=== PATIENT | female | born 2000 | race Caucasian/White ===

== ENCOUNTER 2022-04-22 22:50 | Emergency (ER) | payer OTHER, SELFPAY ==
--- NOTE | ~2022-04-22 | XR_ITS ---
EXAMINATION: XR chest 1V portable 04/23/2022 00:27 INDICATION: Cough and shortness of breath PROCEDURE: 2 view chest COMPARISON: No prior studies for comparison. FINDINGS: The lungs are clear. The cardiomediastinal silhouette is within normal limits. There are no pleural effusions. There is no pneumothorax suspected. IMPRESSION: 1: NO ACUTE CARDIOPULMONARY DISEASE. Reviewed, dictated and finalized at location A. [employer] OPERATOR
[2022-04-22 22:52] VITALS: BP 140/85; PULSE 79; RESP 20; TEMP 36.3; O2SAT 100
--- NOTE | 2022-04-22 23:07 | ED.GENADULT ---
HPI - General Adult General Chief complaint: Upper Respiratory Infection Stated complaint: dehydrated sick for 3 days, URI Time Seen by Provider: 04/22/22 23:00 Source: RN notes reviewed History of Present Illness HPI narrative: Patient presents emergency department from home for nausea vomiting. Patient states that she has been ill for the past 2 days states that she has been having rhinorrhea sore throat a cough this been nonproductive nausea and vomiting. She states she has been unable to keep anything down today. She states she has not had any measured fevers gone to [facility] 2 days ago and had a negative COVID test at that time. She denies any chest pain shortness of breath or abdominal pain states she did take Tylenol earlier today for the symptoms Related Data Allergies Allergy/AdvReac Type Severity Reaction Status Date / Time No Known Allergies Allergy Verified 04/22/22 23:36 Review of Systems Review of Systems: Gen.: Denies fevers or chills ENT: Reports rhinorrhea and sore throat Respiratory: Denies shortness of breath reports cough CV: Denies chest pain or palpitations GI: See HPI Musculoskeletal: Denies back pain or muscle pain Neuro: Denies numbness, tingling, weakness or focal weakness Skin: Denies rash Except as documented, all other systems reviewed and negative [facility] Past Medical History Medical History (Updated 04/23/22 @ 01:41 by Dipak Andrade DO) Patient denies significant medical history Social History Social History (Updated 04/22/22 @ 23:08 by Dipak Andrade DO) Smoking status: Never smoker Exam Narrative: APPEARANCE: No acute distress, nontoxic, resting in bed EYES: EOMI HEENT: Normocephalic, atraumatic, oral mucosa dry no erythema exudate posterior pharynx RESPIRATORY: No respiratory distress Clear to auscultation bilaterally with no rhonchi wheezing or rales. CARDIOVASCULAR: Regular rate and rhythm without murmurs rubs or gallops. ABDOMINAL: Soft, nontender, nondistended, no rebound or guarding MUSCULOSKELETAl: Moves all extremities. No clubbing, cyanosis or edema. NEURO: Awake and alert. Following commands, speech normal, no focal deficits SKIN:: Warm, dry. No rashes lesions or abrasions PSYCHIATRIC: Normal affect/mood, Course Course Emergency Course: Patient states she is feeling much better at this time ready for discharge Discussed with patient results of workup and diagnosis. Discussed need for follow-up with primary care, proper use of medication, and reasons to return to the emergency department. Patient understands and agrees to current treatment plan Vital Signs Vital signs: Vital Signs Temperature 97.4 F L 04/22/22 22:52 Pulse Rate 79 04/22/22 22:52 Respiratory Rate 20 04/22/22 22:52 Blood Pressure 140/85 04/22/22 22:52 Pulse Oximetry 100 04/22/22 22:52 Oxygen Delivery Room Air 04/22/22 22:52 Temperature 97.4 F L 04/22/22 22:52 Pulse Rate 79 04/22/22 22:52 Respiratory Rate 20 04/22/22 22:52 Blood Pressure 140/85 04/22/22 22:52 Pulse Oximetry 100 04/22/22 22:52 Oxygen Delivery Room Air 04/22/22 22:52 Medical Decision Making Vital Signs Vital Signs: Vital Signs Temperature 97.4 F L 04/22/22 22:52 Pulse Rate 79 04/22/22 22:52 Respiratory Rate 20 04/22/22 22:52 Blood Pressure 140/85 04/22/22 22:52 Pulse Oximetry 100 04/22/22 22:52 Oxygen Delivery Room Air 04/22/22 22:52 Temperature 97.4 F L 04/22/22 22:52 Pulse Rate 79 04/22/22 22:52 Respiratory Rate 20 04/22/22 22:52 Blood Pressure 140/85 04/22/22 22:52 Pulse Oximetry 100 04/22/22 22:52 Oxygen Delivery Room Air 04/22/22 22:52 Lab Data 04/22/22 23:35 04/22/22 23:35 Labs: Lab Results 04/22/22 04/22/22 04/22/22 Range/Units 23:34 23:35 23:35 WBC 11.0 H (4.5-10.0) K/mm3 RBC 4.39 (4.2-5.4) M/mm3 Hgb 13.4 (12.0-15.0) g/dL Hct 38.9 (37.0-47.0) % MCV 88
[2022-04-22] MEDS: ONDANSETRON INJ 4 MG/2 ML VIAL IV PUSH (23:37)
[2022-04-22] MEDS: SODIUM CHLORIDE 0.9% IV 1,000 ML 999 ML IV CONT (23:37)
[2022-04-22] MEDS: FAMOTIDINE 20 MG/2 ML VIAL IV PUSH (23:37)
[2022-04-22 23:51] LABS: Basophils Percent Auto 0.4 % (0.2-1.2); Eosinophils Percent Auto 0.3 % (0-4.4); Hematocrit 38.9 % (37.0-47.0); Hemoglobin 13.4 g/dL (12.0-15.0); Immature Granulocyte Absolute 0.06 K/mm3 (0.00-0.031); Immature Granulocyte Percent A 0.5 % (0-0.5); Lymphocytes Absolute Auto 0.74 K/mm3 (0.9-3.2); Lymphocytes Percent Auto 6.7 % (18.3-44.2); Mean Corpuscular HGB Conc 34.4 g/dl (32-36); Mean Corpuscular Hemoglobin 30.5 pg (26-34); Mean Corpuscular Volume 88.6 fl (80-100); Mean Platelet Volume 9.4 fl (7.4-10.4); Monocytes Percent Auto 9.1 % (2.6-8.5); Neutrophils Absolute Auto 9.1 K/mm3 (1.3-6.7); Platelet Count Result 277 k/mm3 (150-375); Red Blood Count 4.39 M/mm3 (4.2-5.4); Red Cell Distribution Width 12.7 % (11.5-14.5)
[2022-04-23 00:02] LABS: Alanine Aminotransferase 19 U/L (6-35); Albumin Level 4.7 g/dL (3.5-5.1); Alkaline Phosphatase 69 U/L (38-126); Anion Gap 14 mmol/L (8-16); Aspartate Amino Transferase 27 U/L (14-36); Bilirubin,Total 0.7 mg/dL (0.2-1.3); Blood Urea Nitrogen 15 mg/dL (7-17); Carbon Dioxide 20 mmol/L (22-30); Chloride 105 mmol/L (98-107); Estimated CRCL calculation 102 ml/min; Estimated Glomerular Filt Rate > 60; Glucose 107 mg/dL (65-110); Lipase 31 U/L (23-300); Potassium 3.5 mmol/L (3.4-5.0); Sodium 139 mmol/L (137-145)
[2022-04-23 00:32] LABS: Influenza A QL RT-PCR Positive (Negative); Influenza B QL RT-PCR Negative (Negative); SARS-CoV-2 RNA PCR Negative
[2022-04-23 00:40] LABS: Appearance Urine Clear (Clear); Bilirubin Urine 2+ (Negative); Blood Urine 2+ (Negative); Color Urine Yellow (Yellow); Glucose Urine UA Negative (Negative); Ketones Urine 4+ mg/dL (Negative); Leukocyte Esterase Ur Negative LEU/UL (Negative); Nitrate Urine Negative (Negative); Protein Urine 2+ mg/dL (Negative); Specific Grav Ur 1.025 (1.001-1.035)
[2022-04-23 00:43] LABS: Bacteria Urine Trace /hpf; Mucus Urine Heavy /lpf; RBC Urine 21-50 /hpf (0-2); Squamous Epithelial Cell Urine Occasional /hpf (Few); WBC Urine 0-3 /hpf
[2022-04-23 00:45] LABS: Add Urine Microscopic? YES
[2022-04-23] MEDS: SODIUM CHLORIDE 0.9% IV 1,000 ML 999 ML IV CONT (00:55)
[2022-04-23 02:27] VITALS: PULSE 80; RESP 18; O2SAT 98
== END 2022-04-23 02:29 | disposition home or self-care (01) ==
PROVIDERS: Emergency Provider Emergency Medicine
DX: J10.1 Influenza due to other identified influenza virus with other respiratory manifestations (principal); E86.0 Dehydration; Z20.822 Contact with and (suspected) exposure to COVID-19
CPT/HCPCS: 36415; 71045; 80053; 81001; 83690; 85025; 87636; 96361; 96374; 96375; 99284; J2405; J7030

== ENCOUNTER 2023-04-06 22:57 | Emergency (ER) | payer OTHER, SELFPAY ==
[2023-04-06 23:14] VITALS: BP 130/81; PULSE 78; RESP 15; TEMP 36.4; O2SAT 98
[2023-04-06 23:20] LABS: Basophils Absolute Auto 0.1 K/mm3 (0.0-0.1); Basophils Percent Auto 0.4 % (0.2-1.2); Eosinophils Percent Auto 0.2 % (0-4.4); Hematocrit 42.7 % (37.0-47.0); Hemoglobin 14.5 g/dL (12.0-15.0); Immature Granulocyte Absolute 0.04 K/mm3 (0.00-0.031); Immature Granulocyte Percent A 0.3 % (0-0.5); Lymphocytes Absolute Auto 2.63 K/mm3 (0.9-3.2); Lymphocytes Percent Auto 21.2 % (18.3-44.2); Mean Corpuscular Hemoglobin 30.3 pg (26-34); Mean Corpuscular Volume 89.3 fl (80-100); Mean Platelet Volume 9.2 fl (7.4-10.4); Monocytes Absolute Auto 0.7 K/mm3 (0.1-0.6); Monocytes Percent Auto 5.6 % (2.6-8.5); Neutrophils Percent Auto 72.3 % (45.5-73.1); Platelet Count Result 376 k/mm3 (150-375); Red Blood Count 4.78 M/mm3 (4.2-5.4); Red Cell Distribution Width 12.7 % (11.5-14.5); White Blood Count 12.4 K/mm3 (4.5-10.0)
[2023-04-06 23:32] LABS: Alanine Aminotransferase 19 U/L (6-35); Albumin Level 5.1 g/dL (3.5-5.1); Alkaline Phosphatase 94 U/L (38-126); Anion Gap 14 mmol/L (8-16); Aspartate Amino Transferase 24 U/L (14-36); Bilirubin,Total 1.2 mg/dL (0.2-1.3); Blood Urea Nitrogen 17 mg/dL (7-17); Calcium 9.9 mg/dL (8.4-10.2); Carbon Dioxide 26 mmol/L (22-30); Chloride 99 mmol/L (98-107); Estimated CRCL calculation 93 ml/min; Estimated Glomerular Filt Rate > 60; Glucose 86 mg/dL (65-110); Lipase 52 U/L (23-300); Potassium 3.6 mmol/L (3.4-5.0); Sodium 139 mmol/L (137-145)
[2023-04-06 23:50] LABS: Appearance Urine Cloudy (Clear); Bacteria Urine Rare /hpf; Bilirubin Urine 1+ (Negative); Blood Urine 1+ (Negative); Color Urine Dark Yellow (Yellow); Glucose Urine UA Negative (Negative); Ketones Urine 4+ mg/dL (Negative); Leukocyte Esterase Ur 1+ LEU/UL (Negative); Nitrate Urine Negative (Negative); Non Pathogenic Casts 0-2; Protein Urine 1+ mg/dL (Negative); RBC Urine 21-50 /hpf (0-2); Squamous Epithelial Cell Urine Moderate /hpf (Few); pH Urine 8.5 (5.0-9.0)
[2023-04-06 23:55] LABS: Specific Grav Ur 1.039 (1.001-1.035)
[2023-04-06 23:56] LABS: Add Urine Microscopic? YES
--- NOTE | 2023-04-07 02:39 | ED.NAVMDI ---
HPI - Nausea/Vomiting/Diarrhea General Chief complaint: Nausea/Vomiting/Diarrhea Stated complaint: vomting x 2 days Time Seen by Provider: 04/07/23 00:50 History of Present Illness HPI Narrative: 22-year-old female, LMP 1 week ago, reports for evaluation for 30 hours of emesis and generalized abdominal cramping. Patient states she had similar symptoms when she had a UTI prior. She states she feels she is dehydrated. She denies chest pain or shortness of breath, fever, dysuria, hematuria, urinary frequency urgency, diarrhea. Last bowel movement was 2 days ago and normal. Related Data Allergies Allergy/AdvReac Type Severity Reaction Status Date / Time No Known Allergies Allergy Verified 04/22/22 23:36 Review of Systems Review of Systems: CONSTITUTIONAL: Denies fever, chills, or sweats. EYES: Denies visual changes, redness, or discharge. ENT: Denies rhinorrhea, congestion, sore throat, or otalgia. CARDIOVASCULAR: Denies chest pain, palpitations, or edema. RESPIRATORY: Denies cough or dyspnea. GASTROINTESTINAL: HPI GENITOURINARY: Denies dysuria or hematuria. SKIN: Denies rash or itching. MUSCULOSKELETAL: Denies back pain, joint pain, or myalgia. NEUROLOGIC: Denies headache, numbness, or weakness. PSYCHIATRIC: Denies anxiety or depression. [facility] Past Medical History Medical History Patient denies significant medical history Social History Social History Smoking status: Never smoker Exam Narrative: GENERAL: Well-appearing, well-nourished, and in no acute distress. Patient resting comfortably in exam bed. She is pleasant and conversational. HEAD: Normocephalic, atraumatic. EYES: PERRLA and EOMI. ENT: Nares clear, no rhinorrhea or epistaxis. Mucous membranes moist. NECK: Supple. CHEST: Clear to auscultation. No respiratory distress. HEART: Regular rate and rhythm. No murmur heard. Normal peripheral pulses. ABDOMEN: Soft, nontender, nondistended, normal active bowel sounds. No CVA tenderness. EXTREMITIES: Normal range of motion. No edema. SKIN: Warm, dry, no rash. NEURO: No focal deficits. Alert and oriented x3 Course Vital Signs Vital signs: Vital Signs Temperature 97.5 F L 04/06/23 23:14 Pulse Rate 78 04/06/23 23:14 Respiratory Rate 15 04/06/23 23:14 Blood Pressure 130/81 04/06/23 23:14 Pulse Oximetry 98 04/06/23 23:14 Temperature 97.5 F L 04/06/23 23:14 Pulse Rate 78 04/06/23 23:14 Respiratory Rate 15 04/06/23 23:14 Blood Pressure 130/81 04/06/23 23:14 Pulse Oximetry 98 04/06/23 23:14 MDM - Nausea/Vomiting/Diarrhea MDM Narrative Medical decision making narrative: 22-year-old female reports for evaluation for 30 years of episodes of generalized abdominal cramping. See HPI for further history. Vitals are stable she is afebrile. No tachycardia or hypotension. She is well-appearing on exam. Her abdomen is soft and nontender. No CVA tenderness. Lab significant for leukocytosis of 12.4, no bandemia. Chemistries are unremarkable. Urinalysis concerning for high specific gravity, ketones, and urinary tract infection. She has no CVA tenderness and is declining the CT scan. Urine culture pending. test is negative. Lipase normal. Labs discussed with the patient. She received IV fluids, Zofran a dose Rocephin with improvement. Upon re-evaluation, she states she feels much better. Plan to discharge her home with antibiotics and Zofran. Encouraged close PCP follow-up. Strict ED return precautions discussed. She is agreeable with the plan verbalized understanding. Discharged in stable condition. Lab Data 04/06/23 23:11 04/06/23 23:11 Labs: Lab Results 04/06/23 Range/Units 23:11 WBC 12.4 H (4.5-10.0) K/mm3 RBC 4.78 (4.2-5.4) M/mm3 Hgb 14.5 (12.0-15.0) g/dL Hct 42.7 (37.0-47.0) %
== END 2023-04-07 02:18 | disposition home or self-care (01) ==
PROVIDERS: Preventive Medicine Aerospace Medicine; Emergency Provider Physician Assistant; PCP Family Medicine Sports Medicine
DX: N12 Tubulo-interstitial nephritis, not specified as acute or chronic (principal)
CPT/HCPCS: 36415; 80053; 81001; 81025; 83690; 85025; 87086; 96365; 96375; 99284; J0696; J2405; J7030